=== PATIENT | female | born 1975 | race Caucasian/White ===

== ENCOUNTER 2019-10-18 16:56 | Emergency (ER) | payer OTHER ==
[~2019-10-18] VITALS: Ht 170.2 cm; Wt 56.4 kg
[2019-10-18 17:04] VITALS: Ht 170.2 cm; Wt 56.4 kg
[2019-10-18] MEDS ORDERED: ACETAMINOPHEN500 M1 PO (17:08)
[2019-10-18] MEDS ORDERED: IBUPROFEN600 MG PO (17:08)
[2019-10-18] MEDS ORDERED: NEURONTIN 300300 MG PO (17:08)
[2019-10-18 17:49] LABS: BASOPHILS 0.6 % (0-2); EOSINOPHILS 2.6 % (0-7); HEMATOCRIT 33.8 % (36.0-48.0); HEMOGLOBIN 9.7 g/dL (12-16); IMMATURE GRANULOCYTES 0.3 % (0-5); LYMPHOCYTES 25.4 % (15-50); MCH 28.4 pg (26.0-34.0); MCHC 28.7 g/dL (31.0-37.0); MCV 98.8 fL (80.0-100.0); MEAN PLATELET VOLUME 9.8 fL (7.4-10.4); MONOCYTES 3.4 % (2-11); NEUTROPHILS 67.7 % (40-80); PLATELET COUNT 279 10x3/uL (130-400); RBC 3.42 10x6/uL (4.00-5.40); RDW 17.1 % (11.5-14.5); WBC 3.5 10x3/uL (4.8-10.8)
[2019-10-18 18:07] LABS: ANION GAP 12.4 mmol/L (8-16); CALCIUM 8.8 mg/dL (8.5-10.1); CREATININE - SERUM 0.9 mg/dL (0.6-1.3); POTASSIUM - SERUM 3.4 mmol/L (3.5-5.1)
[2019-10-18 18:13] LABS: ALBUMIN 3.5 g/dL (3.4-5.0); BILIRUBIN - TOTAL 0.2 mg/dL (0.2-1.3)
[2019-10-18 18:14] LABS: UDS - AMPHET NEGATIVE QUAL (NEGATIVE); UDS - BARB NEGATIVE QUAL (NEGATIVE); UDS - BENZO NEGATIVE QUAL (NEGATIVE); UDS - COCAINE NEGATIVE QUAL (NEGATIVE); UDS - OPIATE POSITIVE QUAL (NEGATIVE); UDS - PCP NEGATIVE QUAL (NEGATIVE); UDS - THC NEGATIVE QUAL (NEGATIVE)
[2019-10-18 18:19] LABS: BACTERIA MANY /hpf (NEGATIVE); BILIRUBIN NEGATIVE (NEGATIVE); EPITHELIAL CELLS 0-5 /hpf (0-5); GLUCOSE NEGATIVE (NEGATIVE); KETONE NEGATIVE (NEGATIVE); NITRITE POSITIVE (NEGATIVE); RED CELLS - URINE 0-5 /hpf (0-5); UROBILINOGEN NORMAL (NORMAL); WHITE CELLS - URINE 25-50 /hpf (NEGATIVE)
[2019-10-18 18:20] LABS: HCG URINE NEGATIVE (NEGATIVE)
[2019-10-18] MEDS ORDERED: HYDROCODON-ACE1 EAC7 PO (19:08)
[2019-10-18] MEDS ORDERED: MACROBID100 MG PO (19:08)
[2019-10-18 20:20] VITALS: BP 119/75
== END 2019-10-18 20:20 | disposition home or self-care (01) ==
LOC: D.ER 16:56
PROVIDERS: Family Medicine
DX: R10.9 Unspecified abdominal pain (principal); N20.0 Calculus of kidney; N39.0 Urinary tract infection, site not specified

== ENCOUNTER 2019-11-17 17:02 | Emergency (ER) | payer OTHER ==
[~2019-11-17] VITALS: Ht 170.2 cm; Wt 58.2 kg
[~2019-11-17 17:02] MED LIST: ACETAMINOPHEN500 M1 PO; HYDROCODON-ACE1 EAC7 PO; IBUPROFEN600 MG PO; MACROBID100 MG PO; NEURONTIN 300300 MG PO
[2019-11-17 17:41] VITALS: Ht 170.2 cm; Wt 58.2 kg
[2019-11-17 18:38] LABS: BILIRUBIN NEGATIVE (NEGATIVE); GLUCOSE NEGATIVE (NEGATIVE); KETONE NEGATIVE (NEGATIVE); NITRITE NEGATIVE (NEGATIVE); UROBILINOGEN NORMAL (NORMAL)
[2019-11-17 18:39] LABS: BACTERIA MODERATE /hpf (NEGATIVE); EPITHELIAL CELLS 0-5 /hpf (0-5); RED CELLS - URINE 0-5 /hpf (0-5)
[2019-11-17] MEDS ORDERED: HYDROCODON-ACE1 EAC7 PO (18:41)
[2019-11-17 19:03] VITALS: BP 123/72
== END 2019-11-17 19:03 | disposition home or self-care (01) ==
LOC: D.ER 17:02
PROVIDERS: Emergency Medicine
DX: Z76.0 Encounter for issue of repeat prescription (principal); R10.9 Unspecified abdominal pain; Z87.442 Personal history of urinary calculi